=== PATIENT | female | born 1965 | race Caucasian/White ===

== ENCOUNTER → 2016-10-29 | Outpatient (CLI) | payer MEDICAID ==
[~2016-10-29] MED LIST: DUEXIS 26.6 MG-1 TAB PO; FLUOXETINE20 MG PO; HYDROCODONE-APA1 TA2 PO; LIPITOR20 MG PO; LYRICA25 MG PO; NORCO 325 MG-51 TAB PO; TIZANIDINE HCL 44 MG PO
[2016-10-29 13:26] LABS: AMPHETAMINES/METAMPHETAMINES NEGATIVE ng/mL (<1000)
== END ==
LOC: LAB 12:03
PROVIDERS: Anesthesiology
DX: Z79.899 Other long term (current) drug therapy (principal)